=== PATIENT | male | born 1940 | race Caucasian/White ===

== ENCOUNTER → 2017-01-21 | Outpatient (CLI) | payer MEDICARE, BC ==
[~2017-01-21] MED LIST: ASPIRIN81 MG PEG; AUGMENTIN875 MG PEG; BUDESONIDE0.5 MG/2 M INH; CIPRO PO; DETROL PO; DOXYCYCLIN25 MG/5 ML PO; DOXYCYCLINE HYC50 MG PO; DOXYCYCLINE PO; LISINOPRIL5 MG PO; NORVASC2.5 MG PEG; OMEPRAZOLE20 M2 PEG; OMEPRAZOLE40 MG PO; PERFOROMIS20 MCG/2 M INH; PROAIR HFA8.5 GM INH; SIMVASTATIN10 MG PEG; TIMOPTIC 0.5% OP5 M1 OU; TOFRANIL25 MG PEG; VICODIN PO; VITAMIN B122500 MCG
--- NOTE | ~2017-01-21 | CT57 ---
[facility] A Service of [facility] & [facility] RADIOLOGY TEXT RESULTS PATIENT: ОЛЬГА GRANT LOCATION: [facility] : 40 UNIT #: [id number] AGE: [address]: Akanksha Abdul APRN SEX: M ORDER DR: [id number] [facility] [address] [place], [place] [address] [id number] O MR#: [id number] [facility] #: [id number] NAME: ОЛЬГА GRANT : 1940 SEX: M STUDY DATE/TIME: 01/21/2017 14:42 UNIT: [facility] ROOM: STUDY DESCRIPTION: CT Chest Wo Cont Attending Physician: Akanksha Abdul A.P.R.N. Referring Physician: Akanksha Abdul A.P.R.N. Ordering Physician: Akanksha Abdul A.P.R.N. Primary Care Physician: Andrew Cortez M.D. MEDICAL IMAGING REPORT This report is preliminary unless electronic signature is present EXAM CT chest without contrast INDICATIONS Abnormal chest x-ray at doctor's office last week. Shortness of breath for [address] of the chest was performed without contrast. Coronal and sagittal reformatted images were obtained. This CT exam was performed with one or more of the following radiation dose reduction techniques: automatic exposure control, adjustment of mA and/or kV according to patient size, and iterative reconstruction. COMPARISON STUDIES No comparisons. FINDINGS Background emphysema. There is patchy tree-in-bud nodularity in the right lower lobe with some associated mild bronchiectasis and bronchial wall thickening and there is some patchy peribronchiolar density with bronchiectasis and bronchial wall thickening in the right middle lobe and some mild bronchiectasis and bronchial wall thickening within the left lower lobe and lingula. The tree-in-bud nodularity is most suggestive of an infectious or inflammatory process. The bronchial wall thickening may indicate bronchitis. There are mildly prominent mediastinal lymph nodes which are nonspecific and may be reactive. Coronary artery calcifications. There is no pleural effusion. Limited imaging of the upper abdomen demonstrates a gastrostomy tube. Cholelithiasis. Tiny presumed hyperdense cyst in the upper pole of the left kidney. Bone windows demonstrate deformity of the right chest wall from multiple, STS. [facility] A Service of [facility] RADIOLOGY TEXT RESULTS PATIENT: ОЛЬГА GRANT LOCATION: [facility] : 40 UNIT #: [id number] AGE: [address]: Akanksha Abdul SERVICE RIG OPERATOR SEX: M ORDER DR: presumably old healed rib fractures. IMPRESSION 1. There is multifocal tree-in-bud nodularity within the right lower lobe, most likely infectious or inflammatory small airways disease. Short-interval follow-up chest CT in 2-3 months recommended to document clearing. 2. There is some bilateral bronchial wall thickening and mild bronchiectasis. Bronchial wall thickening may indicate bronchitis. 3. Mild underlying emphysema. Dictated by... Wally Bermudez M.D. THIS IS AN ELECTRONICALLY VERIFIED REPORT Wally Bermudez M.D. at 01/22/2017 5:15 PM MANN/gomez TD: 01/21/2017 22:14 JOB #: [id number] MEDICAL IMAGING REPORT Page 1 of 1 COPY
== END | disposition home or self-care (01) ==
LOC: CCAT 14:22
DX: R93.8 Abnormal findings on diagnostic imaging of other specified body structures (principal); J18.9 Pneumonia, unspecified organism; R91.1 Solitary pulmonary nodule; J47.9 Bronchiectasis, uncomplicated
CPT/HCPCS: 71250

== ENCOUNTER → 2017-04-22 | Outpatient (CLI) | payer MEDICARE, BC ==
--- NOTE | ~2017-04-22 | CT57 ---
[facility] A Service of [facility] & [facility] RADIOLOGY TEXT RESULTS PATIENT: ОЛЬГА GRANT [facility] : 40 UNIT #: [id number] AGE: [address]: Akanksha Abdul APRN SEX: M ORDER DR: [id number] [facility] [address] [place], [place] [address] [id number] O MR#: [id number] Acc #: [id number] NAME: ОЛЬГА GRANT : 1940 SEX: M STUDY DATE/TIME: 04/22/2017 09:56 UNIT: [facility] ROOM: STUDY DESCRIPTION: CT Chest Wo Cont Attending Physician: Akanksha Abdul A.P.R.N. Referring Physician: Akanksha Abdul A.P.R.N. Ordering Physician: Akanksha Abdul A.P.R.N. Primary Care Physician: Andrew Cortez M.D. MEDICAL IMAGING REPORT This report is preliminary unless electronic signature is present EXAM CT chest without contrast, 04/22/2017 09:56 hours HISTORY 76-year-old man complaining of shortness of air for 4 months. History of prostate cancer 5 years ago. COMPARISON Chest CT, 01/21/2017 TECHNIQUE Helical noncontrasted images were obtained from the thoracic inlet through the adrenal glands. Sagittal and coronal reconstructions were performed. Total exam DLP 320 mGy-cm. This CT exam was performed with one or more of the following radiation dose reduction techniques: automatic exposure control, adjustment of mA and/or kV according to patient size, and iterative reconstruction. FINDINGS Images through the thoracic inlet demonstrate no thyroid lesion or supraclavicular adenopathy. Images through the chest demonstrate ascending aortic aneurysm which measures 4 cm. Aorta previously measured 3.8 cm. Descending thoracic aorta is normal. Cardiac chambers are normal in size. Aortic root is dilated to a diameter 4.7 cm. This is similar to prior exam. There are coronary artery calcifications. There is no pericardial or pleural fluid. There is underlying moderate centrilobular emphysema in the upper and lower lungs. There is peribronchiolar wall thickening right greater than left lower lobe with mild peripheral mucous plugging in the right lower lobe. Previous tree-in-bud densities in the right lower lobe on 01/21/2017 have resolved. [facility]. [facility] A Service of [facility] & [facility] RADIOLOGY TEXT RESULTS PATIENT: ОЛЬГА GRANT LOCATION: [facility] : 40 UNIT #: [id number] AGE: [address]: Akanksha Abdul SENIOR ARCHITECT/DESIGN MANAGER SEX: M ORDER DR: Old right rib fracture deformities unchanged. There are no new bone lesions. Limited views through the upper abdomen demonstrate distended gallbladder with gallstones. There is no bile duct dilatation or adrenal lesion. IMPRESSION 1. There is underlying emphysematous change with peribronchiolar wall thickening in both lower lobes similar to prior study with perhaps minimal mucous plugging in the right lower lobe. The tree-in-bud opacities seen in the right lower lobe on 01/21/2017 have resolved. 2. Ascending aortic aneurysm measuring 4 cm, previously 3.8 cm. 3. Coronary artery calcifications are present. 4. Old healed rib fracture deformities on the right. Dictated by... Avani Kilpatrick M.D. THIS IS AN ELECTRONICALLY VERIFIED REPORT Avani Kilpatrick M.D. at 04/22/2017 2:31 PM Shahriar TD: 04/22/2017 12:56 JOB #: [id number] MEDICAL IMAGING REPORT Page 1 of 1 COPY
== END | disposition home or self-care (01) ==
LOC: CCAT 09:13
DX: J18.9 Pneumonia, unspecified organism (principal); R93.8 Abnormal findings on diagnostic imaging of other specified body structures; I71.2 Thoracic aortic aneurysm, without rupture; I25.10 Atherosclerotic heart disease of native coronary artery without angina pectoris; R91.8 Other nonspecific abnormal finding of lung field; Z87.81 Personal history of (healed) traumatic fracture
CPT/HCPCS: 71250